=== PATIENT | male | born 1970 | race Caucasian/White ===

== ENCOUNTER → 2017-01-01 | Outpatient (CLI) | payer BC, OTHER ==
[~2017-01-01] MED LIST: COUMADIN 10MG T10 M1 PO; COUMADIN 5 MG TA5 MG PO; ENOXAPARIN150 MG/1 M SQ; LOVENOX SQ; NOHOMEMEDICATIONS; NORCO 5-325 TA1 EACH PO
== END ==
LOC: HYPER 07:05
DX: I87.2 Venous insufficiency (chronic) (peripheral) (principal); L97.322 Non-pressure chronic ulcer of left ankle with fat layer exposed; Z72.89 Other problems related to lifestyle; Z72.0 Tobacco use

== ENCOUNTER → 2017-02-28 | Outpatient (CLI) | payer BC, OTHER | LOC: HYPER 06:56 | DX: I87.2 Venous insufficiency (chronic) (peripheral) (principal); L97.322 Non-pressure chronic ulcer of left ankle with fat layer exposed; R60.0 Localized edema; Z72.89 Other problems related to lifestyle; Z72.0 Tobacco use ==

== ENCOUNTER → 2017-05-09 | Outpatient (CLI) | payer BC, OTHER | LOC: HYPER 07:12 | DX: I87.332 Chronic venous hypertension (idiopathic) with ulcer and inflammation of left lower extremity (principal); L97.322 Non-pressure chronic ulcer of left ankle with fat layer exposed; Z72.89 Other problems related to lifestyle ==

== ENCOUNTER → 2017-05-23 | Outpatient (CLI) | payer BC, OTHER | LOC: HYPER 06:59 | DX: I87.2 Venous insufficiency (chronic) (peripheral) (principal); L97.322 Non-pressure chronic ulcer of left ankle with fat layer exposed; Z72.89 Other problems related to lifestyle ==

== ENCOUNTER → 2017-05-29 | Outpatient (CLI) | payer BC, OTHER | LOC: HYPER 06:48 | DX: I87.2 Venous insufficiency (chronic) (peripheral) (principal); L97.322 Non-pressure chronic ulcer of left ankle with fat layer exposed; R60.9 Edema, unspecified; Z72.89 Other problems related to lifestyle ==

== ENCOUNTER → 2019-03-21 | Outpatient (CLI) | payer BC, OTHER | LOC: HYPER 06:58 | DX: L97.322 Non-pressure chronic ulcer of left ankle with fat layer exposed (principal); I87.2 Venous insufficiency (chronic) (peripheral); R60.9 Edema, unspecified; F41.9 Anxiety disorder, unspecified ==

== ENCOUNTER → 2019-04-29 | Outpatient (CLI) | payer BC, OTHER | LOC: HYPER 14:00 | DX: L97.322 Non-pressure chronic ulcer of left ankle with fat layer exposed (principal); I87.2 Venous insufficiency (chronic) (peripheral); R60.9 Edema, unspecified; F41.9 Anxiety disorder, unspecified ==

== ENCOUNTER → 2019-05-07 | Outpatient (CLI) | payer BC, OTHER | LOC: HYPER 07:52 | DX: L97.322 Non-pressure chronic ulcer of left ankle with fat layer exposed (principal); L84 Corns and callosities; I87.2 Venous insufficiency (chronic) (peripheral); R60.9 Edema, unspecified; D68.51 Activated protein C resistance; F41.9 Anxiety disorder, unspecified ==

== ENCOUNTER → 2019-05-14 | Outpatient (CLI) | payer BC, OTHER | LOC: HYPER 08:09 | DX: L97.322 Non-pressure chronic ulcer of left ankle with fat layer exposed (principal); L84 Corns and callosities; D68.51 Activated protein C resistance; I87.2 Venous insufficiency (chronic) (peripheral); R60.9 Edema, unspecified; F41.9 Anxiety disorder, unspecified ==

== ENCOUNTER → 2019-05-29 | Outpatient (CLI) | payer BC, OTHER | LOC: HYPER 07:51 | DX: L97.322 Non-pressure chronic ulcer of left ankle with fat layer exposed (principal); L84 Corns and callosities; I87.2 Venous insufficiency (chronic) (peripheral); R60.9 Edema, unspecified; R21 Rash and other nonspecific skin eruption; D68.51 Activated protein C resistance; F41.9 Anxiety disorder, unspecified ==

== ENCOUNTER → 2019-06-11 | Outpatient (CLI) | payer BC, OTHER | LOC: HYPER 07:43 | DX: L97.322 Non-pressure chronic ulcer of left ankle with fat layer exposed (principal); I87.2 Venous insufficiency (chronic) (peripheral); L84 Corns and callosities; R60.9 Edema, unspecified; R21 Rash and other nonspecific skin eruption; F41.9 Anxiety disorder, unspecified ==